=== PATIENT | female | born 1995 | race African-American/Black ===

== ENCOUNTER 2017-05-12 14:03 | Emergency (ER) | payer BC, OTHER ==
[2017-05-12 14:08] VITALS: BP 120/80; PULSE 80; TEMP 98.1; BMI 20.1
[2017-05-12] MEDS ORDERED: ERYTHROMYCIN 0.5% OPHTHALMIC OINTMENT 3.5 GM TUBE OD ONE (15:38)
--- NOTE | 2017-05-12 15:38 | PDOC ---
History of Present Illness - General Chief Complaint: Foreign Body (FB) Stated Complaint: Eye Problem Time Seen by Provider: 05/12/17 14:42 History Source: Patient Exam Limitations: No Limitations - History of Present Illness Initial Comments: 05/12/17 15:13 21 yr female c/o fb sensation to her right eye was at work today at the computer when she felt irritation to her eye and rubbed it now has a sensation to the inner corner upper eyelid. no contact lenses Severity: mild Past History - Past Medical History Allergies/Adverse Reactions: Allergies Allergy/AdvReac Type Severity Reaction Status Date / Time amoxicillin Allergy Verified 05/12/17 14:08 Home Medications: Ambulatory Orders Erythromycin 0.5% Eye Ointment [Erythromycin 0.5% Eye Ointment -] 1 applic OD TID #1 tube 05/12/17 Anemia: Yes (SLIGHT) CVA: No COPD: No Disorders: Yes (IBS) HTN: No (LOW BP) Other medical history: denies - Immunization History Immunization Up to Date: Yes - Suicide/Smoking/Psychosocial Hx Smoking History: Never smoked Information on smoking cessation initiated: No Hx Alcohol Use: No Drug/Substance Use Hx: No Substance Use Type: None Review of Systems - Review of Systems Able to Perform ROS?: Yes Is the patient limited Irish proficient: No Constitutional: No: Symptoms Reported HEENTM: Yes: See HPI *Physical Exam - Vital Signs Last Vital Signs Temp Pulse Resp BP Pulse Ox 98.1 F 80 17 120/80 100 05/12/17 14:06 05/12/17 14:06 05/12/17 14:06 05/12/17 14:06 05/12/17 14:06 - Physical Exam General Appearance: Yes: Nourished, Appropriately Dressed HEENT: positive: EOMI, ENA, Other (neg swelling, redness to left eye , neg tearing no fb seen on exam ) Neck: positive: Supple Respiratory/Chest: positive: Lungs Clear, Normal Breath Sounds Cardiovascular: positive: Regular Rhythm, Regular Rate Procedures - Eye Procedure Alcaine Drops Administered: Yes (2 drops right eye ) Eye Irrigated w/ Saline(Tye Lens): Yes Antibiotic Oinment/Drps Admin: right eye Progress: 05/12/17 15:16 no fb seen neg corneal abrasion will irrigate with NS Medical Decision Making - Medical Decision Making 05/12/17 15:39 cc: fb sensation to the right eyelid inner corner will irrigate no fb seen neg corneal abrasion erythromycin ointment placed visual acuity is 20/20 bilaterally without correction. no vision changes *DC/Admit/Observation/Transfer Diagnosis at time of Disposition: Irritation of right eye - Discharge Dispostion Disposition: HOME Condition at time of disposition: Good - Prescriptions Prescriptions: Erythromycin 0.5% Eye Ointment [Erythromycin 0.5% Eye Ointment -] 1 applic OD TID #1 tube - Referrals Referrals: Anil Moulton MD [Primary Care Provider] - Topher Griffiths MD [Staff Physician] - - Patient Instructions Additional Instructions: use the eye ointment three times a day for 5 days follow with the eye doctor tomorrow if you continue to have a sensation of foreign body - Post Discharge Activity
[2017-05-12] MEDS ORDERED: ERYTHROMYCIN 0.5% OPHTHALMIC OINTMENT 3.5 GM TUBE ONE (15:42)
== END 2017-05-12 15:55 | disposition home or self-care (01) ==
LOC: JERFT 14:03
DX: H57.8 Other specified disorders of eye and adnexa (principal)
CPT/HCPCS: 99281-25